=== PATIENT | female | born 1990 | race Caucasian/White ===

== ENCOUNTER 2021-06-28 15:01 | Outpatient (CLI) | payer BC ==
[2021-06-29 16:39] LABS: SARS-CoV-2 PCR by NAA Not Detected (NotDetected)
== END 2021-06-28 15:02 | disposition home or self-care (01) ==
LOC: CSHLAB 15:01
PROVIDERS: ATTEND Obstetrics & Gynecology
DX: Z20.822 Contact with and (suspected) exposure to COVID-19 (principal)
CPT/HCPCS: U0003; U0005

== ENCOUNTER 2021-07-01 22:48 | Inpatient (IN) | payer BC ==
[~2021-07-01 22:48] MED LIST: Acetaminophen 500 MG TAB PO PRN; Butorphanol Tartrate 1 MG/ML VIAL SLOW IVP PRN; Carboprost 250 MCG/ML AMP IM PRN; Diphenoxylate HCl/Atropine Tablet PO PRN; HYDROcodone/Acetaminophen 5/325 mg Tablet PO PRN; Ibuprofen 800 MG TAB PO PRN; Lidocaine 1% (PF) 30 ML VIAL SC PRN; Methylergonovine 0.2 MG/ML VIAL IM PRN; Misoprostol 200 MCG TAB PR PRN; Ondansetron PF 4 MG/2 ML Vial IVP PRN; Promethazine HCl 25 MG/ML VIAL IM PRN; hydrALAZINE 20 MG/ML VIAL SLOW IVP PRN
[2021-07-01] MEDS ORDERED: NS w/ Oxytocin 30 units 500 ML IV SCH ×2 (23:00)
[2021-07-01] MEDS ORDERED: NS w/ Oxytocin 30 units 500 ML IVPB SCH (23:00)
[2021-07-02] MEDS ORDERED: Bupivacaine 0.25% HCL 30 ML VIAL ONE (07:00)
[2021-07-02 07:06] VITALS: BMI 26.6
[2021-07-02] MEDS: Lactated Ringer's 1,000 ML IV SCH ×3 (07:30→15:32)
[2021-07-02] MEDS ORDERED: NS w/ Oxytocin 30 units 500 ML ONE (07:42)
[2021-07-02 07:51] LABS: Hemoglobin 10.5 g/dL (12.0-15.5); Mean Corpuscular HGB CONC 31.9 g/dL (32.0-36.0); Mean Corpuscular Hemoglobin 25.6 pg (27.0-33.0); Mean Corpuscular Volume 80.2 fl (81.6-98.3); Mean Platelet Volume 11.2 fl (7.4-10.4); Platelet Count 209 10x3/uL (150-450); RBC Distribution Width 14.5 % (11.5-14.5); White Blood Cell (WBC) Count 9.1 10x3/uL (3.5-10.5)
[2021-07-02 08:18] LABS: Hep B Surf Ag Non-Reactive S/CO (NonReactive)
[2021-07-02 08:20] LABS: Syphilis Antibody Nonreactive (Nonreactive); Syphilis Antibody Index 0.05 S/CO (<1.00 Non-Reactive)
[2021-07-02 08:28] LABS: HBSAg Index 0.21 S/CO (0-0.99)
[2021-07-02 09:01] LABS: HIV (1/2) Antibody/Antigen Non-Reactive (NonReactive); HIV 1/2 INDEX 0.07 S/CO (<1.00)
[2021-07-02] MEDS ORDERED: Fentanyl 2 mcg/Bup 0.1% Cadd 100 ML ONE (11:37)
[2021-07-02] MEDS ORDERED: Naloxone HCl 0.4 mg/ml Vial IVP PRN ×2 (12:07)
[2021-07-02] MEDS ORDERED: diphenhydrAMINE 50 MG/ML VIAL IVP PRN (12:07)
[2021-07-02] MEDS ORDERED: Hydrocerin (Eucerin) Cream 120 gm Jar TOP PRN (12:07)
[2021-07-02] MEDS ORDERED: Ondansetron PF 4 MG/2 ML Vial IVP PRN ×2 (12:07→21:32)
[2021-07-02] MEDS ORDERED: Acetaminophen 325 MG TAB PO PRN (12:07)
[2021-07-02] MEDS ORDERED: ePHEDrine Sulfate 50 MG/10 ML VIAL SLOW IVP PRN (12:07)
[2021-07-02] MEDS ORDERED: Promethazine HCl 25 MG/ML VIAL IM PRN ×2 (12:07→21:32)
[2021-07-02] MEDS ORDERED: Lactated Ringer's 500 ML IV PRN (12:07)
[2021-07-02] MEDS ORDERED: Fentanyl 2 mcg/Bupivacaine 0.1% Cassette 100 ML EPIDURAL SCH (12:15)
[2021-07-02] MEDS ORDERED: Communication Order-Pharmacy FS SCH (12:15)
[2021-07-02] MEDS ORDERED: diphenhydrAMINE 25 MG CAP PO PRN (21:32)
[2021-07-02] MEDS ORDERED: Zolpidem Tartrate 5 MG TAB PO PRN (21:32)
[2021-07-02] MEDS ORDERED: Methylergonovine 0.2 MG/ML VIAL IM PRN (21:32)
[2021-07-02] MEDS ORDERED: Benzocaine-Menthol 82.5 ML CAN TOP PRN (21:32)
[2021-07-02] MEDS ORDERED: Boostrix 0.5 ML (Tdap) VIAL IM ONE (21:32)
[2021-07-02] MEDS ORDERED: Preparation H Ointment 28 GM TUBE PR PRN (21:32)
[2021-07-02] MEDS ORDERED: hydrALAZINE 20 MG/ML VIAL SLOW IVP PRN (21:32)
[2021-07-02] MEDS ORDERED: Lanolin Ointment 7 GM TUBE TOP PRN (21:32)
[2021-07-02] MEDS ORDERED: Milk Of Magnesia 30 ML UDCUP PO PRN (21:32)
[2021-07-02] MEDS ORDERED: HYDROcodone/Acetaminophen 5/325 mg Tablet PO PRN ×2 (21:32)
[2021-07-02] MEDS ORDERED: Bisacodyl 10 MG SUPP PR PRN (21:32)
[2021-07-02] MEDS ORDERED: Measles/Mumps/Rubella 10 MCG/0.5 ML VIAL SC ONE (21:32)
[2021-07-02] MEDS ORDERED: Varicella virus, LIVE 0.5 ML VIAL SC ONE (21:32)
[2021-07-02] MEDS ORDERED: NS w/ Oxytocin 30 units 500 ML IV SCH (22:00)
[2021-07-02] MEDS ORDERED: Docusate Calcium (SURFAK) 240 MG CAP PO SCH (22:00)
[2021-07-02] MEDS ORDERED: Naloxone HCl 0.4 mg/ml Vial ONE (22:35)
[2021-07-02] MEDS: Ibuprofen 800 MG TAB PO SCH (23:07)
[2021-07-03 06:50] LABS: Hemoglobin 9.4 g/dL (12.0-15.5); Mean Corpuscular HGB CONC 31.4 g/dL (32.0-36.0); Mean Corpuscular Hemoglobin 25.7 pg (27.0-33.0); Mean Corpuscular Volume 81.7 fl (81.6-98.3); Mean Platelet Volume 11.6 fl (7.4-10.4); Platelet Count 198 10x3/uL (150-450); RBC Distribution Width 14.5 % (11.5-14.5); Red Blood Cell (RBC) Count 3.66 10x6/uL (3.90-5.03); White Blood Cell (WBC) Count 12.9 10x3/uL (3.5-10.5)
[2021-07-03] MEDS: Ibuprofen 800 MG TAB PO SCH ×2 (07:51→15:00)
[2021-07-03] MEDS ORDERED: Ferrous Sulfate 325 MG TAB PO SCH (08:00)
[2021-07-03] MEDS ORDERED: Docusate Calcium (SURFAK) 240 MG CAP PO SCH (09:00)
[2021-07-03] MEDS ORDERED: Prenatal Vitamin 1 TAB PO SCH (09:00)
[2021-07-03 19:46] VITALS: BP 109/59; TEMP 98.3
== END 2021-07-03 19:50 | disposition home or self-care (01) | DRG 807 ==
LOC: CSHLD 22:48 → UNDOADMIN 07-02 06:30 → CSHLD 07-02 06:30 → CSHPP 07-02 22:25
PROVIDERS: ADMIT Obstetrics & Gynecology; ATTEND Obstetrics & Gynecology
PROC: 10E0XZZ Delivery of Products of Conception, External Approach (ICD-10-PCS; principal; 2021-07-02)
PROC: 0W8NXZZ Division of Female Perineum, External Approach (ICD-10-PCS; 2021-07-02)
DX: O80 Encounter for full-term uncomplicated delivery (principal); Z37.0 Single live birth; Z3A.39 39 weeks gestation of pregnancy
CPT/HCPCS: 36415; 51702; 85027; 86780; 86850; 86870; 86900; 86901; 87340; 87389; J2590; J7120